=== PATIENT | female | born 1955 | race Caucasian/White ===

== ENCOUNTER 2021-02-04 23:15 | Emergency (ER) | payer MEDICARE ==
[~2021-02-04] VITALS: Ht 165.1 cm; Wt 86.2 kg
[~2021-02-04 23:15] MED LIST: AZITHROMYCIN 2250 MG PO; BENADRYL25 MG PO; DOXYCYCLINE 10100 MG PO; FLEXERIL PO; HYDROCODON-ACE1 EAC8 PO; HYDROCODONE-AP1 EAC6 PO; LORTAB 7.5/5001 TA1 PO; MEDROLDOSEPACK PO; NOHOMEMEDICATIONS; NORCO 5-325 TA1 EACH PO; PEPCID20 MG PO; PERCOCET 5-3251 EACH PO; PHENERGAN 25 MG25 M1 PO; PHENERGAN25 MG RECTAL; PROAIR HFA8.5 GM INH; TORADOL 10 MG T10 MG PO; VENTOLIN HFA INH8 GM IH; ZANAFLEX4 MG PO; ZOFRAN ODT4 MG PO; ZPAK PO
[2021-02-05 00:23] VITALS: BP 144/79
== END 2021-02-05 00:23 | disposition home or self-care (01) ==
LOC: M.ERS 23:15
DX: M25.512 Pain in left shoulder (principal); N80.9 Endometriosis, unspecified; Z88.0 Allergy status to penicillin; Z98.890 Other specified postprocedural states; Z90.49 Acquired absence of other specified parts of digestive tract